=== PATIENT | male | born 1975 | race African-American/Black ===

== ENCOUNTER 2023-02-17 14:49 | Emergency (ER) | payer OTHER ==
[~2023-02-17] VITALS: Ht 172.7 cm; Wt 73.0 kg
[2023-02-17 14:53] VITALS: BP 140/76; PULSE 130; RESP 16; TEMP 98.7; O2SAT 99
[2023-02-17 15:43] LABS: BASOPHILS % 0.6 % (0.0-2.0); EOSINOPHILS % 0.8 % (0.0-5.0); HEMATOCRIT. 47.6 % (42.0-52.0); HEMOGLOBIN. 15.9 g/dL (14.0-18.0); MEAN CORPUSCULAR HEMOGLOBIN 32.1 pg (28.0-32.0); MEAN CORPUSCULAR HGB CONC 33.4 g/dL (31.0-37.0); MEAN CORPUSCULAR VOLUME 96.1 fL (80.0-94.0); MEAN PLATELET VOLUME 8.5 fl (7.4-10.4); MONOCYTES % 9.1 % (2.0-8.0); NEUTROPHILS % 70.5 % (40.0-76.0); PLATELET 240 x1000/uL (130-400); RED BLOOD CELL COUNT 4.96 mill/uL (4.7-6.1); RED CELL DISTRIBUTION WIDTH 14.6 % (11.6-14.6)
[2023-02-17 16:04] LABS: CHLORIDE 105 mEq/L (98-107); INDEX HEMOLYSI 1 (1-3); INDEX ICTERIC 1 (1-4); INDEX LIPEMIC 1 (1-3); POTASSIUM 3.7 mEq/L (3.5-5.1); SODIUM 138 mEq/L (136-145)
[2023-02-17 16:20] LABS: ALANINE AMINOTRANSFERASE 25 IU/L (13-61); ALBUMIN 3.9 g/dL (3.4-5.0); ASPARTATE AMINOTRANSFERASE 22 IU/L (15-37); BILIRUBIN TOTAL 0.7 mg/dL (0.1-1.0); CALCIUM 9.4 mg/dL (8.5-10.1); CARBON DIOXIDE 26 mEq/L (21-32); GLUCOSE 100 mg/dL (70-105); NT PRO B-TYPE NATRIURETIC PEP 7 pg/mL (5-125); PROTEIN TOTAL 8.2 g/dL (6.0-8.3); TROPONIN I HIGH SENSITIVITY 4 ng/L (<78); UREA NITROGEN BLOOD 13 mg/dL (7-21)
== END 2023-02-17 20:05 | disposition left against medical advice (07) ==
LOC: ER 15:07
DX: R00.2 Palpitations (principal); Z88.5 Allergy status to narcotic agent
CPT/HCPCS: 80053; 83880; 85025; 85379; 84484; 36415; 71045; 93005; 99285; Z7610